=== PATIENT | male | born 1990 | race Caucasian/White ===

== ENCOUNTER 2017-02-17 01:39 | Emergency (ER) | payer OTHER ==
[~2017-02-17] VITALS: Ht 180.3 cm; Wt 115.2 kg
--- NOTE | 2017-02-17 02:06 | ED HEADACHE COMPLAINT ---
History of Present Illness General Chief Complaint: Headache Stated Complaint: LIZ Source: patient, family Exam Limitations: no limitations Vital Signs & Intake/Output Vital Signs & Intake/Output Vital Signs Date Time Temp Pulse Resp B/P B/P Pulse O2 O2 Flow FiO2 Mean Ox Delivery Rate 02/17 0146 96.8 61 18 119/74 97 Room Air Allergies Coded Allergies: amoxicillin (RED, ITCHY 02/17/17) cefprozil (From CEFZIL) (RED, ITCHY 02/17/17) Reconcile Medications Rosuvastatin Calcium (Crestor) 20 MG TABLET 1 TAB PO DAILY CHOL (Reported) Triage Note: PT TO ED C/O MIGRAINE HEADACHE, STARTED OFF AND ON 22 HRS AGO, NOW CONSTANT FOR THE LAST 4 HRS. +NAUSEA FOR THE LAST HOUR. SQUEEZING PAIN TO BACK OF HEAD, STABBING PAIN TO FOREHEEAD AREA. PAIN GOES DON BACK ORF HEAD TO NECK. STATES PAIN IS WORSE THAN HIS USUAL MIGRAINE. TOOK 243 MG ASA AT 2100. NORMAL VISION. Triage Nurses Notes Reviewed? yes HPI: Patient presents with a worsening headache that started approximately 3 PM this afternoon. The pain is a tightness that starts in the back of his neck and radiates up the back of his head and then wrapped around both sides of his head around to his forehead. 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 There are no aggravating or medication factors however he does state that he has photophobia. There is no blurry vision. There is no nausea or vomiting. The pain is currently 9 out of 10. Past History Travel History Traveled to [place] past 21 day No Medical History Any Pertinent Medical History? see below for history Neurological: migraine Gastrointestinal: GERD Surgical History Surgical History: non-contributory Psychosocial History What is your primary language [place] Tobacco Use: Current Not Daily ETOH Use: occasional use Illicit Drug Use: denies illicit drug use Family History Hx Contributory? No Review of Systems Review of Systems Constitutional: Reports: no symptoms. Eyes: Reports: see HPI, photophobia. Ears, Nose, Throat, Mouth: Reports: no symptoms. Respiratory: Reports: no symptoms. Cardiovascular: Reports: no symptoms. Gastrointestinal/Abdominal: Reports: no symptoms. Genitourinary: Reports: no symptoms. Musculoskeletal: Reports: see HPI, neck pain. Skin: Reports: no symptoms. Neurological/Psychological: Reports: see HPI, headache. Hematologic/Endocrine: Reports: no symptoms. Endocrine: Reports: no symptoms. Immunologic/Allergic: Reports: no symptoms. All Other Systems: Reviewed and Negative Physical Exam Physical Exam General Appearance: well developed/nourished, alert, awake, moderate distress Head: atraumatic, normal appearance Eyes: Bilateral: PERRL, EOMI, other (SHARP DISK MARGINS). Ears, Nose, Throat: normal pharynx, normal ENT inspection, hearing grossly normal Neck: normal inspection, supple, full range of motion, NO MENENGEAL SIGNS, TENDER TO PALPATION PERAVERTEBRAL Respiratory: normal breath sounds, chest non-tender, no respiratory distress, lungs clear Cardiovascular: regular rate/rhythm, normal peripheral pulses Gastrointestinal: normal bowel sounds, soft, non-tender, no organomegaly Back: normal inspection, normal range of motion, no vertebral tenderness Extremities: normal inspection, normal capillary refill, normal range of motion, no edema Psychiatric: awake, alert, oriented x 3 Cranial Nerves: normal hearing, normal speech, PERRL Coordination/Gait: normal gait Motor/Sensory: no motor/sensory deficits Skin: intact, normal color, warm/dry Lymphatic: no anterior cervical yadira Core Measures Severe Sepsis Present: No Septic Shock Present: No Progress Differential Diagnosis: meningitis, migraine LIZ, musculoskeletal pain, subarach. Hem., tension LIZ Plan of Care: Current Medications Sig/Adan Start time Last Medication Dose Stop Time Status Admin Sodium Chloride 1,000 ML BOLUS ONE 02/17 215 AC (Normal Saline 0.9%) 02/17 314 Comments: Patient feels much better after IV Toradol, IV Reglan and Flexeril. Questions have been answered. Patient wants to go home. Departure Departure Disposition: HOME OR SELF CARE Condition: Stable Clinical Impression Primary Impression: Tension headache Referrals: PATIENT HAS NO PRIMARY CARE DR (PCP/Family) Additional Instructions: RETURN IF SYMPTOMS WORSEN OR FOR ANY CONCERNS Departure Forms: Customer Survey General Discharge Information
[2017-02-17] MEDS ORDERED: CRESTOR20 M2 PO (02:39)
[2017-02-17 03:21] VITALS: BP 110/70
== END 2017-02-17 03:22 ==
LOC: ERH 01:39
DX: G44.209 Tension-type headache, unspecified, not intractable (principal)
CPT/HCPCS: 96361; 96374; 96375; J1885; J2765